=== PATIENT | male | born 1965 | race Caucasian/White ===

== ENCOUNTER 2023-08-16 09:45 | Outpatient (CLI) | payer OTHER, SELFPAY ==
[2023-08-16] MEDS: ALBUTEROL 0.083% 2.5 MG/3 ML NEB IH (10:47)
== END 2023-08-16 23:59 ==
LOC: RT 09:47
PROVIDERS: PCP Chiropractor; Visit Provider Chiropractor
DX: J40 Bronchitis, not specified as acute or chronic (principal); R06.02 Shortness of breath
CPT/HCPCS: 94060